=== PATIENT | female | born 1965 | race Caucasian/White ===

== ENCOUNTER 2019-09-24 09:25 | Outpatient (CLI) | payer BC ==
[2019-09-24 13:46] LABS: BASOPHILS % (AUTO) 0.6 %; EOSINOPHILS # (AUTO) 0.1 10^3/uL (0.0-0.7); EOSINOPHILS % (AUTO) 1.2 %; LYMPHOCYTES # (AUTO) 1.5 10^3/uL (1.5-3.5); LYMPHOCYTES % (AUTO) 28.9 %; MEAN CORPUSCULAR HEMOGLOBIN 29.6 pg (27.0-31.0); MEAN CORPUSCULAR HGB CONC 32.8 g/dL (32.0-36.0); MEAN CORPUSCULAR VOLUME 90.5 fL (81.0-99.0); MEAN PLATELET VOLUME 11.2 fL (7.9-10.8); MONOCYTES # (AUTO) 0.5 10^3/uL (0.0-1.0); MONOCYTES % (AUTO) 10.2 %; NEUTROPHILS % (AUTO) 58.9 %; PLT - PLATELET COUNT 251 10^3/uL (130-450); RED BLOOD COUNT 5.06 10^6/uL (4.20-5.40); RED CELL DISTRIBUTION WIDTH 13.4 % (12.0-15.0); WHITE BLOOD COUNT 5.1 x10^3/uL (4.8-10.8)
[2019-09-24 14:20] LABS: ALBUMIN 4.1 g/dL (3.2-5.5); ALBUMIN/GLOBULIN RATIO 1.5 (1.0-2.2); ALKALINE PHOSPHATASE 68 IU/L (42-121); ALT ALANINE AMINOTRANSFERASE 31 IU/L (10-60); AST ASPARTATE AMINOTRANSFERASE 28 IU/L (10-42); BUN - BLOOD UREA NITROGEN 13 mg/dL (6-20); CALCIUM 9.5 mg/dL (8.5-10.3); CARBON DIOXIDE - CO2 27 mmol/L (21-32); CHLORIDE 106 mmol/L (101-111); CHOL/HDL RATIO 3.6 (<4.4); CHOLESTEROL 215 mg/dL; CREATININE 0.6 mg/dL (0.4-1.0); GFR - MDRD 103 (>89); GLUCOSE 96 mg/dL (70-100); HDL CHOLESTEROL 60 mg/dL; LDL CHOLESTEROL,CALCULATED 123 mg/dL; LDL/HDL RATIO 2.1 (<4.4); SODIUM 143 mmol/L (135-145); TOTAL PROTEIN 6.9 g/dL (6.7-8.2); VLDL CHOLESTEROL 32 mg/dL
[2019-09-24 14:53] LABS: FREE T4 (FREE THYROXINE) 0.69 ng/dL (0.58-1.64)
[2019-09-24 15:04] LABS: HB2 TOTAL 14.5 g/dL; HEMOGLOBIN A1C 0.55 g/dL; HEMOGLOBIN A1C % 5.6 % (4.6-6.2)
== END 2019-09-24 23:59 | disposition home or self-care (01) ==
LOC: LAB.N 09:25
PROVIDERS: ATTEND Family Medicine
DX: I10 Essential (primary) hypertension (principal); E03.9 Hypothyroidism, unspecified
CPT/HCPCS: 36415; 80053; 80061; 83036; 83721; 84439; 84443; 85025

== ENCOUNTER 2019-10-12 12:56 | Outpatient (CLI) | payer BC ==
--- NOTE | 2019-10-12 13:34 | Mammography Report ---
Reason: ROUTINE MAMMO Procedure Date: 10/12/2019 Accession Number: [id number] / [id number] Procedure: MGN - Screening Mammo Dig w/Implants CPT Code: Final Report FULL RESULT: EXAM: Screening Mammo Dig w/Implants DATE: 10/12/2019 1:22 PM CLINICAL HISTORY: The patient is an asymptomatic 54-year-old female presented for screening mammography. No reported personal nor family history of breast cancer. Personal history of breast augmentation.) TECHNIQUE: (B) - Bilateral CC and MLO views were obtained. Displaced views obtained. COMPARISON: None available. PARENCHYMAL PATTERN: (A) - The breasts demonstrate scattered fibroglandular densities bilaterally. FINDINGS: Bilateral silicone implants in place. Nonspecific isodense nodular glandular asymmetry noted bilaterally. There are no suspicious masses, calcifications, or areas of distortion. IMPRESSION: Benign findings. BI-RADS category 2. RECOMMENDATION: (ANNUAL) - Recommend routine annual screening mammography. BI-RADS CATEGORY: (2) - Benign Findings. STANDARD QUALIFYING STATEMENTS: 1. This examination was not reviewed with the aid of Computer-Aided Detection (CAD). 2. A negative or benign imaging report should not preclude biopsy if clinically suspicious findings are present. 3. Dense breasts may obscure an underlying neoplasm.
== END 2019-10-12 12:57 | disposition home or self-care (01) ==
LOC: DI.N 12:56
PROVIDERS: ATTEND Family Medicine
DX: Z12.31 Encounter for screening mammogram for malignant neoplasm of breast (principal); Z98.82 Breast implant status
CPT/HCPCS: 77067

== ENCOUNTER 2019-11-30 09:31 | Day surgery (SDC) | payer BC ==
[2019-11-30] MEDS ORDERED: LACTATED RINGERS 1,000 ML IV ONE (09:48)
[2019-11-30 12:11] VITALS: BP 132/78
== END 2019-11-30 09:32 | disposition home or self-care (01) ==
LOC: SDS 09:31
PROVIDERS: ATTEND Surgery
PROC: 0DJD8ZZ Inspection of Lower Intestinal Tract, Via Natural or Artificial Opening Endoscopic (ICD-10-PCS; principal; 2019-11-30 10:30)
DX: Z12.11 Encounter for screening for malignant neoplasm of colon (principal); K50.90 Crohn's disease, unspecified, without complications; K21.9 Gastro-esophageal reflux disease without esophagitis; Z98.84 Bariatric surgery status; E03.9 Hypothyroidism, unspecified; R32 Unspecified urinary incontinence
CPT/HCPCS: 45378; J7120